=== PATIENT | female | born 1955 | race Two or more races ===

== ENCOUNTER 2024-05-16 09:55 | Emergency (ER) | payer OTHER, SELFPAY ==
--- NOTE | 2024-05-16 10:32 | XR_ITS ---
Examination: CT abdomen and pelvis without contrast. Coronal 3-D reconstructions. Sagittal 2-D reconstructions. Date and time of exam:May 16, 2024 1233 hours INDICATIONS: Generalized abdominal pain and flank pain today CTDI: vol (mGy): 10.4 DLP: (mGycm): 562 Technique: Axial images of the abdomen have been obtained, 3 mm slice thickness Intravenous contrast material has not been administered. Low dose protocols were performed. One or more of the following dose reduction techniques were used; automated exposure control, adjustment of the mA and/or KV according to patient size, use of iterative reconstruction technique. Findings: Small liver cysts, the largest 20 mm No gallstones Spleen not enlarged No pancreatic mass No renal or ureteral calculi, no hydronephrosis Aorta normal size No pericecal inflammatory change No bowel obstruction Contracted urinary bladder with minimal urinary bladder wall thickening Absent uterus Advanced disc narrowing L5-S1 IMPRESSION: No renal or ureteral calculi, no hydronephrosis No bladder mass or bladder calculi Normal appendix
--- NOTE | 2024-05-16 10:33 | PD.EDRME ---
Rapid Medical Screening Exam RME Arrival date/time: 05/16/24 09:55 68-year-old female presents the emergency department complaint abdominal pain and back pain Chief Complaint: Back Pain/Injury Time Seen by Provider: 05/16/24 10:15
[2024-05-16 11:19] LABS: Basophils % (Auto) 0 % (0-2.5); Eosinophils # (Auto) 0.1 Thou/mm3 (0.0-0.5); Eosinophils % (Auto) 1 % (0-10); Hematocrit 38.2 % (36.0-46.0); Immature Granulocytes % (Auto) 0 % (0-0); Immature Granulocytes Auto 0.03 Thou/mm3 (0.00-0.00); Lymphocytes # (Auto) 1.7 Thou/mm3 (1.0-4.8); Lymphocytes % (Auto) 21 % (10-50); Mean Corpuscular Hemoglobin 29.2 pg (25.0-35.0); Mean Corpuscular Volume 86 fL (80-100); Monocytes # (Auto) 0.6 Thou/mm3 (0.0-0.8); Monocytes % (Auto) 7 % (0-12); Neutrophils # (Auto) 5.7 Thou/mm3 (1.8-7.7); Neutrophils % (Auto) 70 % (37-80); Nucleated Red Blood Cell % 0 /100 WBC (0); Platelet Count 319 Thou/mm3 (140-440); RDW Standard Deviation 42.7 fL (36.4-46.3); Red Blood Count 4.45 Miln/mm3 (4.00-5.20); White Blood Count 8.1 Thou/mm3 (3.6-11.0)
[2024-05-16 11:21] LABS: Collection Type, Urine Clean Catch; Squamous Epithelial Cell,Urine 0 /hpf (0-5)
[2024-05-16 11:45] LABS: Alanine Aminotransferase 17 U/L (10-49); Albumin, Serum 4.3 gm/dL (3.4-4.8); Albumin/Globulin Ratio 1.3 (1.2-2.2); Alkaline Phosphatase 134 U/L (46-116); Anion Gap 8 (7-16); Aspartate Amino Transferase 18 U/L (0-34); BUN/Creatinine Ratio 17 Ratio (12-20); Bilirubin,Total 0.8 mg/dL (0.3-1.2); Blood Urea Nitrogen 10 mg/dL (9-23); Calcium 9.1 mg/dL (8.3-10.6); Calcium (Corrected) 9.1 mg/dL (8.5-10.1); Carbon Dioxide 24.7 mMol/L (20.0-31.0); Chloride 108 mMol/L (98-107); Creatinine (Component) 0.6 mg/dL (0.6-1.3); Globulin 3.2 gm/dL (2.3-3.5); Glucose 95 mg/dL (74-106); Lipase 39 U/L (12-53); Osmolality,Calculated 280 (275-295); Potassium 4.1 mMol/L (3.4-5.1); Sodium 141 mMol/L (136-145); Total Protein 7.5 gm/dL (5.7-8.2); Troponin I < 0.020 ng/mL (0.0-0.045); eGFR > 60 See Note
[2024-05-16 11:51] LABS: Bacteria,Urine 1+; Bilirubin,Urine Negative (Negative); Blood,Urine Negative (Negative); Clarity,Urine Clear (Clear/Hazy); Color,Urine Colorless (Lt Yel-Yel); Glucose, Urine Negative (Negative); Ketones,Urine Negative (Negative); Leukocyte Esterase,Urine Positive (Negative); Nitrite,Urine Negative (Negative); Protein,Urine Negative (Neg - Trace); RBC,Urine 1 /hpf (0-3); Specific Gravity,Urine 1.008 (1.001-1.035); Urobilinogen,Urine Negative mg/dL (0.0-1.0); WBC,Urine 9 /hpf (0-5)
[2024-05-16 12:30] LABS: Culture Indicated,Urine Yes
--- NOTE | 2024-05-16 13:58 | EDNOTE_ITS ---
ED Back Injury Pain RME/HPI General Chief Complaint: Back Pain/Injury Stated Complaint: BACK PAIN Time Seen by Provider: 05/16/24 10:15 Arrival date/time: 05/16/24 09:55 RME / HPI RME / HPI Narrative: 05/16/24 09:55 68-year-old female presents the emergency department complaint abdominal pain and back pain DR. MENDENHALL MAIN ED EVALUATION: 68 year old female presents to the ED for 2-3 days of left lower back pain that wraps to anterior abdomen and anterior thigh just above the level of knee. Described as aching in sensation that is worse in the left lower back that, rating as moderate. Aggravated with movements and walking. States she has taken Tylenol and Advil at home with minimal relief. Patient mentioned 1 week ago she was reaching and pruning fruit trees. Denies any trauma or falls. Denies any rash, fevers, chills, nausea, vomiting, diarrhea, or urinary symptoms. Denies any history of similar pain. Related Data Previous Rx's ?Medication ?Instructions ?Recorded diazepam 5 mg tablet 5 mg PO BID PRN muscle spasm #6 05/16/24 tabs Allergies Allergy/AdvReac Type Severity Reaction Status Date / Time No Known Drug Allergies Allergy Verified 05/16/24 10:00 Review of Systems Review of Systems Narrative Review of Systems: Gen: No fever, no chills, no weight loss EYES: No discharge, no visual changes, no pain HEENT: No ear pain, no congestion, no sore throat PULM: no shortness of breath, no cough, no congestion CV: No chest pain, no dyspnea on exertion, no palpitations, no chest tightness GI: No nausea, no vomiting, no diarrhea, + pain, no constipation : No frequency, no urgency,? no dysuria Musc/skel: No joint pain, + back pain, +pain down just above thigh Skin: No rash, no ecchymosis, no lesions Neuro: No weakness, no headache Past Medical History Social History SMOKING STATUS: Never smoker ED Exam Narrative Physical exam: GENERAL APPEARANCE: AxOx4, no obvious distress, nontoxic appearing HEENT: NC, AT. MMM. EOMI, clear conjunctiva, oropharynx clear. NECK: Supple without lymphadenopathy. No stiffness or restricted ROM. HEART: Normal rate and regular rhythm, normal S1/S1, no m/r/g LUNGS: CTAB, moving air well. No crackles or wheezes are heard. ABDOMEN: Soft, nontender, nondistended with good bowel sounds heard. BACK: Reverse scoliosis of her spine, no midline tenderness. Right paraspinal tenderness L-L4 with palpable spasm. No CVAT, no obvious deformity. EXTREMITIES: Without cyanosis, clubbing or edema. MUSCULOSKELETAL: FROM of all major joints, no chest tenderness NEUROLOGICAL: Grossly nonfocal. Alert and oriented, moving all 4 extremities. CN not formally tested but appear grossly intact. Observed to ambulate with normal gait. Skin: Warm and dry without any rash. Course Quality Measures none Orders Category Date Time Status CT abdomen pelvis wo con Stat Exams 05/16/24 10:32 Completed CBC Stat Lab 05/16/24 10:49 Completed Comprehensive Metabolic Panel Stat Lab 05/16/24 10:49 Completed Lipase Stat Lab 05/16/24 10:49 Completed Troponin I Stat Lab 05/16/24 10:49 Completed UA, C/S IF [Urinalysis, C/S if Indicated] Stat Lab 05/16/24 11:10 Completed Urine Culture Stat Lab 05/16/24 11:10 Received Reevaluation(s) Reevaluation #1: Patient remains clinically stable throughout the emergency department visit. We reviewed all the results, analysis, and treatment plans. Patient is amenable to discharge. Strict return precautions were outlined. Patient was discharged in stable condition. Time: 14:00 Vital Signs Vital signs: Vital Signs Temperature 98.2 F 05/16/24 13:59 Pulse Rate 77 05/16/24 13:59 Respiratory Rate 18 05/16/24 13:59 Blood Pressure 129/81 05/16/24 13:59 Pulse Oximetry (%) 98 05/16/24 13:59 Oxygen Delivery Method Room Air 05/16/24 13:59 Pulse ox is 98% on room air which is adequate. Back Pain / Injury MDM Narrative MDM Narrative:: Saadia Gaytan am scribing for and in the presence of Dr. Mendenhall. Patient data External records reviewed:: [facility] previous records Clinical information provided by:: patient Social determinants that could affect healthcare access:: none Patient has the following chronic illnesses:: none reported How is presenting disease/condition affected by chronic disease/condition?: no chronic disease Evaluation data The following diagnostics were reviewed and interpreted by me:: lab results and radiology exam(s) Lab and/or radiology exams considered but not ordered:: None Interpretation Summary: Ordering Physician: Freeman ARIZMENDI)Delgado NP Date of Service: 05/16/24 Procedure(s): CT abdomen pelvis wo con Accession Number(s): [id number] cc: Freeman ARIZMENDI)Delgado NP; Salvatore Ordonez MD; NO PRIMARY/FAMILY,PHYSICIAN~ Examination: CT abdomen and pelvis without contrast. Coronal 3-D reconstructions. Sagittal 2-D reconstructions. Date and time of exam:May 16, 2024 1233 hours INDICATIONS: Generalized abdominal pain and flank pain today CTDI: vol (mGy): 10.4 DLP: (mGycm): 562 Technique: Axial images of the abdomen have been obtained, 3 mm slice thickness Intravenous contrast material has not been administered. Low dose protocols were performed. One or more of the following dose reduction techniques were used; automated exposure control, adjustment of the mA and/or KV according to patient size, use of iterative reconstruction technique. Findings: Small liver cysts, the largest 20 mm No gallstones Spleen not enlarged No pancreatic mass No renal or ureteral calculi, no hydronephrosis Aorta normal size No pericecal inflammatory change No bowel obstruction Contracted urinary bladder with minimal urinary bladder wall thickening Absent uterus Advanced disc narrowing L5-S1 IMPRESSION: No renal or ureteral calculi, no hydronephrosis No bladder mass or bladder calculi Normal appendix Dictated By:Salvatore Ordonez MD Signed By:<Electronically signed by Salvatore Ordonez MD in OV>05/16/24 1320 Medications / Prescriptions Medications or Prescriptions considered but not ordered:: None Medication administrations:: see above Consultations Consultation(s) initiated? (list below): No Diagnosis Differential diagnosis back pain/injury: lumbar radiculopathy, sciatica, strain of lumbar region, renal colic, pyelonephritis and thoracic back pain Most likely diagnosis given after review of the tests above:: Strain of lumbar region Admission Indicated Admission indicated?: not indicated Explain why admission is indicated or not indicated:: Does not meet admission criteria. Admission Request Was there a request for admission?: No Disposition Plan Disposition Plan: Discharge Discharge Attestation Discharge Attestation: The patient and all family members were given an opportunity to ask questions and understood the discharge instructions. Discharge instructions specifically effects, indications for sooner follow up or return to the emergency department, and the expected course of current diagnosis. Patient condition: Stable Discharge Plan Plan Patient Disposition: HOME (Self Care) Prescriptions/Referrals Prescriptions/Med Rec: New diazepam 5 mg tablet 5 mg PO BID PRN (Reason: muscle spasm) Qty: 6 0RF Referrals: No Primary/Family,Physician [Primary Care Provider] - In 1 week Problem List Clinical Impression: Strain of lumbar region Patient/Caregiver Discharge Instructions Print Language: Divehi Stand Alone Forms: [facility] Award Info., Patient Portal Info Letter
[2024-05-16 13:59] VITALS: BP 129/81; PULSE 77; RESP 18; TEMP 36.8; O2SAT 98
== END 2024-05-16 14:29 | disposition home or self-care (01) ==
PROVIDERS: Nurse Practitioner Primary Care; Emergency Provider Emergency Medicine
DX: S39.012A Strain of muscle, fascia and tendon of lower back, initial encounter (principal); R10.84 Generalized abdominal pain; X58.XXXA Exposure to other specified factors, initial encounter
CPT/HCPCS: 36415; 74176; 80053; 81001; 83690; 84484; 85025; 87077; 87086; 87186; 99284

== ENCOUNTER 2024-12-04 16:06 | Emergency (ER) | payer MEDICARE, SELFPAY ==
[2024-12-04 16:24] VITALS: BP 136/78; PULSE 69; RESP 18; TEMP 36.8; O2SAT 97
--- NOTE | 2024-12-04 16:30 | XR_ITS ---
EXAMINATION: CT abdomen pelvis without intravenous contrast Date and time: December 04, 2024, 1653 hours, comparison May 16, 2024 INDICATIONS: Left flank pain lower abdominal pain beginning 1 week ago TECHNIQUE AND FINDINGS: CT 3 mm axial images of the abdomen and pelvis 2D sagittal and coronal reconstructions 3D reconstructions Low dose protocols, adjustment MA and KV according to patient size CTDI: 8.87 DLP: 504 FINDINGS: 19 mm liver cyst No gallstones Spleen not enlarged No pancreatic or adrenal mass No renal or ureteral calculi, no hydronephrosis Normal appendix No bowel obstruction No bladder mass or bladder calculi Absent uterus Moderate osteopenia IMPRESSION: No renal or ureteral calculi, no hydronephrosis Normal appendix No bladder mass or bladder calculi
--- NOTE | 2024-12-04 16:31 | PD.EDRME ---
Rapid Medical Screening Exam RME Arrival date/time: 12/04/24 16:06 68-year-old female reports with complaints of left lower back and flank pain for several days Chief Complaint: Back Pain/Injury Time Seen by Provider: 12/04/24 16:25 Vital signs: Vital Signs Temperature 98.3 F 12/04/24 16:24 Pulse Rate 69 12/04/24 16:24 Respiratory Rate 18 12/04/24 16:24 Blood Pressure 136/78 H 12/04/24 16:24 Pulse Oximetry (%) 97 12/04/24 16:24 Oxygen Delivery Method Room Air 12/04/24 16:24
[2024-12-04 16:51] LABS: Basophils # (Auto) 0.0 Thou/mm3 (0.0-0.2); Basophils % (Auto) 0 % (0-2.5); Eosinophils # (Auto) 0.1 Thou/mm3 (0.0-0.5); Eosinophils % (Auto) 2 % (0-10); Hematocrit 37.1 % (36.0-46.0); Hemoglobin 12.2 g/dL (12.0-16.0); Immature Granulocytes Auto 0.02 Thou/mm3 (0.00-0.00); Lymphocytes # (Auto) 1.6 Thou/mm3 (1.0-4.8); Lymphocytes % (Auto) 19 % (10-50); Mean Corpuscular HGB Conc 32.9 g/dl (31.0-37.0); Mean Corpuscular Hemoglobin 28.6 pg (25.0-35.0); Mean Corpuscular Volume 87 fL (80-100); Monocytes # (Auto) 0.7 Thou/mm3 (0.0-0.8); Monocytes % (Auto) 8 % (0-12); Neutrophils # (Auto) 5.9 Thou/mm3 (1.8-7.7); Neutrophils % (Auto) 71 % (37-80); Nucleated Red Blood Cell # 0.00 Thou/mm3 (0.00-0.00); Nucleated Red Blood Cell % 0 /100 WBC (0); Platelet Count 351 Thou/mm3 (140-440); RDW Standard Deviation 41.6 fL (36.4-46.3); Red Blood Count 4.26 Miln/mm3 (4.00-5.20); White Blood Count 8.2 Thou/mm3 (3.6-11.0)
[2024-12-04 17:20] LABS: Alanine Aminotransferase 11 U/L (10-49); Albumin, Serum 4.4 gm/dL (3.4-4.8); Albumin/Globulin Ratio 1.5 (1.2-2.2); Alkaline Phosphatase 127 U/L (46-116); Anion Gap 9 (7-16); Aspartate Amino Transferase 18 U/L (0-34); BUN/Creatinine Ratio 14 Ratio (12-20); Bilirubin,Total 0.7 mg/dL (0.3-1.2); Blood Urea Nitrogen 7 mg/dL (9-23); Calcium 9.5 mg/dL (8.3-10.6); Calcium (Corrected) 9.5 mg/dL (8.5-10.1); Carbon Dioxide 26.2 mMol/L (20.0-31.0); Chloride 106 mMol/L (98-107); Creatinine (Component) 0.5 mg/dL (0.6-1.3); Globulin 3.0 gm/dL (2.3-3.5); Glucose 90 mg/dL (74-106); Osmolality,Calculated 279 (275-295); Potassium 4.4 mMol/L (3.4-5.1); Sodium 141 mMol/L (136-145); Total Protein 7.4 gm/dL (5.7-8.2); eGFR > 60 See Note
[2024-12-04 17:56] LABS: Collection Type, Urine Clean Catch
[2024-12-04 18:58] LABS: Bacteria,Urine 4+; Bilirubin,Urine Negative (Negative); Blood,Urine Negative (Negative); Clarity,Urine Clear (Clear/Hazy); Color,Urine Yellow (Lt Yel-Yel); Culture Indicated,Urine Yes; Glucose, Urine Negative (Negative); Ketones,Urine Negative (Negative); Leukocyte Esterase,Urine Positive (Negative); Nitrite,Urine Negative (Negative); PH,Urine 6.5 (5.0-7.0); Protein,Urine Negative (Neg - Trace); RBC,Urine 2 /hpf (0-3); Specific Gravity,Urine 1.008 (1.001-1.035); Squamous Epithelial Cell,Urine 3 /hpf (0-5); Urobilinogen,Urine Negative mg/dL (0.0-1.0); WBC,Urine 15 /hpf (0-5)
[2024-12-04 20:54] VITALS: BP 135/82; PULSE 69; RESP 18; TEMP 36.6; O2SAT 95
--- NOTE | 2024-12-04 20:59 | PD.EDBACK ---
ED Back Injury Pain RME/HPI General Chief Complaint: Back Pain/Injury Stated Complaint: BACK & L RIBCAGE PAIN Time Seen by Provider: 12/04/24 16:25 Arrival date/time: 12/04/24 16:06 RME / HPI RME / HPI Narrative: 12/04/24 16:06 68-year-old female reports with complaints of left lower back and flank pain for several days --------- Dr. Veronica?s Main ED Evaluation: 68yo female presents to the ED for left flank and lower back pain x 4 days. Of note, patient has been here for 5 hours prior to my evaluation. Patient has had left lower back/flank pain that radiates to her abdomen for the last few days. No falls or injuries. Denies any fever, chills, nausea, vomiting, or any other associated symptoms. NKA. Related Data Previous Rx's ?Medication ?Instructions ?Recorded diazepam 5 mg tablet 5 mg PO BID PRN muscle spasm #6 05/16/24 tabs cephalexin 500 mg capsule 1,000 mg (2 x 500 mg) PO BID 5 12/04/24 days #20 caps Allergies Allergy/AdvReac Type Severity Reaction Status Date / Time No Known Drug Allergies Allergy Verified 12/04/24 16:09 Review of Systems Review of Systems Systems Reviewed: All systems reviewed, normal except as documented Past Medical History Past Medical History CARDIAC: Negative Congestive Heart Failure RESPIRATORY: Negative Chronic Obstructive Pulmonary Disease (COPD) GENITOURINARY: Negative Renal Disease ENDOCRINE: Negative Diabetes Mellitus Type 1 or Diabetes Mellitus Type 2 Social History SMOKING STATUS: Never smoker ED Exam Narrative Physical exam: Generally patient is alert no obvious distress, heart regular rate and rhythm, lungs clear to auscultation equal bilaterally, abdomen soft bowel sounds present nondistended minimal suprapubic abdominal tenderness without rebound, musculoskeletal exam shows no obvious costovertebral angle tenderness Course Quality Measures none Orders Category Date Time Status CT abdomen pelvis wo con Stat Exams 12/04/24 16:30 Completed CBC Stat Lab 12/04/24 16:42 Completed CMP [Comprehensive Metabolic Panel] Stat Lab 12/04/24 16:42 Completed UA, C/S IF [Urinalysis, C/S if Indicated] Stat Lab 12/04/24 17:49 Completed Urine Culture Stat Lab 12/04/24 17:49 Received Vital Signs Vital signs: Vital Signs Temperature 98.3 F 12/04/24 16:24 Pulse Rate 69 12/04/24 16:24 Respiratory Rate 18 12/04/24 16:24 Blood Pressure 136/78 H 12/04/24 16:24 Pulse Oximetry (%) 97 12/04/24 16:24 Oxygen Delivery Method Room Air 12/04/24 16:24 Back Pain / Injury MDM Narrative MDM Narrative:: Scribe Attestation: 12/04/24 - Lukas, Brook Serrato am scribing for and in the presence of Dr. Veronica. I interpreted all labs. There is no fever or leukocytosis. Urine shows evidence for infection. CT scan done of the abdomen pelvis without contrast showed no evidence of hydronephrosis or kidney stone or acute abnormality. Patient was started on cephalexin to be taken as prescribed. Follow-up with her doctor. Return to ER as needed or if condition worsens. Patient data External records reviewed:: [facility] previous records (Per chart review, patient was seen here on 05/16/24 for strain of lumbar region.) Clinical information provided by:: patient Social determinants that could affect healthcare access:: none Patient has the following chronic illnesses:: none How is presenting disease/condition affected by chronic disease/condition?: no chronic disease Evaluation data The following diagnostics were reviewed and interpreted by me:: lab results and radiology exam(s) Lab and/or radiology exams considered but not ordered:: none Interpretation Summary: [facility] Report Signed Patient: RONNA COSBY. Record#: [id number] Birthdate: 1955 Age/Sex: 68 / F Location: [facility] Attending Dr: Ordering Physician: Gato Turner PA-C Date of Service: 12/04/24 Procedure(s): CT abdomen pelvis wo [facility] Accession Number(s): [id number] cc: Conner Serrato MD; Salvatore Ordonez MD; Gato Turner PA-C~ EXAMINATION: CT abdomen pelvis without intravenous contrast Date and time: December 04, 2024, 1653 hours, comparison May 16, 2024 INDICATIONS: Left flank pain lower abdominal pain beginning 1 week ago TECHNIQUE AND FINDINGS: CT 3 mm axial images of the abdomen and pelvis 2D sagittal and coronal reconstructions 3D reconstructions Low dose protocols, adjustment MA and KV according to patient size CTDI: 8.87 DLP: 504 FINDINGS: 19 mm liver cyst No gallstones Spleen not enlarged No pancreatic or adrenal mass No renal or ureteral calculi, no hydronephrosis Normal appendix No bowel obstruction No bladder mass or bladder calculi Absent uterus Moderate osteopenia IMPRESSION: No renal or ureteral calculi, no hydronephrosis Normal appendix No bladder mass or bladder calculi Dictated By: Salvatore Ordonez MD Signed By: <Electronically signed by Salvatore Ordonez MD in OV> 12/04/24 8465 Medications / Prescriptions Medications or Prescriptions considered but not ordered:: none Medication administrations:: see above, if any Consultations Consultation(s) initiated? (list below): No Diagnosis Differential diagnosis back pain/injury: other (See MDM.) Most likely diagnosis given after review of the tests above:: see clinical impression below Admission Indicated Admission indicated?: not indicated Admission Request Was there a request for admission?: No Disposition Plan Disposition Plan: Discharge Discharge Attestation Discharge Attestation: The patient and all family members were given an opportunity to ask questions and understood the discharge instructions. Discharge instructions specifically effects, indications for sooner follow up or return to the emergency department, and the expected course of current diagnosis. Patient condition: Stable Discharge Plan Plan Patient Disposition: HOME (Self Care) Prescriptions/Referrals Prescriptions/Med Rec: New cephalexin 500 mg capsule 1,000 mg PO BID 5 Days Qty: 20 0RF No Action diazepam 5 mg tablet 5 mg PO BID PRN (Reason: muscle spasm) Qty: 6 0RF Referrals: Conner Serrato MD [Primary Care Provider, Family Practice] - In 1 week Problem List Clinical Impression: Acute UTI Patient/Caregiver Discharge Instructions Education Materials: Urinary Tract Infections in Women Additional Instructions: Take the antibiotic as prescribed. Follow-up with your doctor. Return to ER as needed or if condition worsens. Print Language: Faroese Stand Alone Forms: [facility] Award Info., Patient Portal Info Letter
== END 2024-12-04 21:19 | disposition home or self-care (01) ==
PROVIDERS: Physician Assistant; Emergency Provider Emergency Medicine; PCP Family Medicine
DX: N39.0 Urinary tract infection, site not specified (principal)
CPT/HCPCS: 36415; 74176; 80053; 81001; 85025; 87077; 87086; 87186; 99283